=== PATIENT | male | born 1980 | race Caucasian/White ===

== ENCOUNTER → 2024-01-28 10:43 | Outpatient (REF) | payer BC, SELFPAY | LOC: MRI 3T 10:43 | PROVIDERS: ATTENDING PHYSICIAN Otolaryngology; FAMILY PHYSICIAN Family Medicine | DX: H90.42 Sensorineural hearing loss, unilateral, left ear, with unrestricted hearing on the contralateral side (principal) | CPT/HCPCS: 70553; A9575 ==